=== PATIENT | male | born 1995 | race American Indian/Alaskan Native ===

== ENCOUNTER 2017-04-22 13:22 | Emergency (ER) | payer SELFPAY ==
[2017-04-22 13:31] VITALS: BP 144/101
[2017-04-22] MEDS ORDERED: MOTRIN PO ONE (17:55)
--- NOTE | 2017-04-22 17:57 | Emergency Department Report ---
ED ENT HPI - General Chief complaint: Sore Throat Stated complaint: SORE THROAT Time Seen by Provider: 04/22/17 17:40 Source: patient Mode of arrival: Ambulatory Limitations: No Limitations - History of Present Illness Initial comments: 21-year-old male presents with complaint of 3 weeks of intermittent sore throat. No trismus and no stridor no drooling noted on clinical exam. Patient states he sometimes gets bad odor from mouth. Denies any recent dental work. No blood or purulent discharge from throat. Patient is awake alert and oriented 3 fully lucid no drooling noted. Patient states she has a history of recurrent throat infections. Denies any abdominal pain significant fever or chills. Denies any difficulty swallowing solids or liquids. States that sore throat is worse in the mornings. MD complaint: sore throat Onset/Timin -: week(s) Severity: moderate Quality: aching Consistency: intermittent Worsens with: none Associated Symptoms: sore throat - Related Data Previous Rx's Medication Instructions Recorded Last Taken Type Dextromethorphan/Benzocaine 1 each PO Q4H PRN #1 lozenge 04/22/17 Unknown Rx [Cepacol Sorethroat-Cough Silvestre] Ibuprofen [Motrin] 800 mg PO Q8HR PRN #30 tablet 04/22/17 Unknown Rx Allergies Allergy/AdvReac Type Severity Reaction Status Date / Time codeine Allergy Rash Verified 04/22/17 13:28 ED Dental HPI - General Chief complaint: Sore Throat Stated complaint: SORE THROAT Time Seen by Provider: 04/22/17 17:40 Source: patient Mode of arrival: Ambulatory Limitations: No Limitations - Related Data Previous Rx's Medication Instructions Recorded Last Taken Type Dextromethorphan/Benzocaine 1 each PO Q4H PRN #1 lozenge 04/22/17 Unknown Rx [Cepacol Sorethroat-Cough Silvestre] Ibuprofen [Motrin] 800 mg PO Q8HR PRN #30 tablet 04/22/17 Unknown Rx Allergies Allergy/AdvReac Type Severity Reaction Status Date / Time codeine Allergy Rash Verified 04/22/17 13:28 ED Review of Systems ROS: Stated complaint: SORE THROAT Other details as noted in HPI Constitutional: denies: chills, fever Eyes: denies: eye pain, eye discharge, vision change ENT: throat pain. denies: ear pain Respiratory: denies: cough, shortness of breath, wheezing Cardiovascular: denies: chest pain, palpitations Endocrine: no symptoms reported Gastrointestinal: denies: abdominal pain, nausea, diarrhea Genitourinary: denies: urgency, dysuria Musculoskeletal: denies: back pain, joint swelling, arthralgia Skin: denies: rash, lesions Neurological: denies: headache, weakness, paresthesias Psychiatric: denies: anxiety, depression Hematological/Lymphatic: denies: easy bleeding, easy bruising ED Past Medical Hx - Past Medical History Previous Medical History?: No - Surgical History Past Surgical History?: No - Social History Smoking Status: Former Smoker Substance Use Type: Alcohol, Marijuana - Medications Home Medications: Home Medications Medication Instructions Recorded Confirmed Last Taken Type Dextromethorphan/Benzocaine 1 each PO Q4H PRN #1 lozenge 04/22/17 Unknown Rx [Cepacol Sorethroat-Cough Silvestre] Ibuprofen [Motrin] 800 mg PO Q8HR PRN #30 tablet 04/22/17 Unknown Rx ED Physical Exam - General Limitations: No Limitations General appearance: alert, in no apparent distress - Head Head exam: Present: atraumatic, normocephalic - Eye Eye exam: Present: normal appearance, PERRL, EOMI - ENT ENT exam: Present: mucous membranes moist - Expanded ENT Exam Expanded Throat exam: Positive: tonsillar exudate (small tonsillar exudates noted. No significant erythema or [employer], uvula is midline oropharynx is patent) - Neck Neck exam: Present: normal inspection - Respiratory Respiratory exam: Present: normal lung sounds bilaterally. Absent: respiratory distress - Cardiovascular Cardiovascular Exam: Present: regular rate, normal rhythm. Absent: systolic murmur, diastolic murmur, rubs, gallop - GI/Abdominal GI/Abdominal exam: Present: soft, normal bowel sounds - Rectal Rectal exam: Present: deferred - Extremities Exam Extremities exam: Present: normal inspection - Back Exam Back exam: Present: normal inspection - Neurological Exam Neurological exam: Present: alert, oriented X3 - Psychiatric Psychiatric exam: Present: normal affect, normal mood - Skin Skin exam: Present: warm, dry, intact, normal color. Absent: rash ED Course Vital Signs 04/22/17 13:28 Temperature 98.3 F Pulse Rate 76 Respiratory 18 Rate Blood Pressure 144/101 O2 Sat by Pulse 99 Oximetry ED Medical Decision Making - Medical Decision Making A/P: Tonsilliths 1-Motrin when necessary, throat lozenges when necessary, salt water rinses 2-strep swab negative 3-follow-up with ENT 4-patient is tolerating by mouth fluid and food without difficulty Critical care attestation.: If time is entered above; I have spent that time in minutes in the direct care of this critically ill patient, excluding procedure time. ED Disposition Clinical Impression: Tonsillith Disposition: TO HOME OR SELFCARE Is pt being admited?: No Does the pt Need Aspirin: No Condition: Stable Instructions: Tonsillitis (ED) Prescriptions: Dextromethorphan/Benzocaine [Cepacol Sorethroat-Cough Silvestre] 1 each PO Q4H PRN #1 lozenge PRN Reason: Sore Throat Ibuprofen [Motrin] 800 mg PO Q8HR PRN #30 tablet PRN Reason: Sore Throat Referrals: [facility] [Provider Group] - 3-5 Days [facility] [Provider Group] - 3-5 Days KARYNA DALAL MD [Staff Physician] - 3-5 Days Forms: Accompanied Note, Work/School Release Form(ED) Time of Disposition: 18:38
== END 2017-04-22 18:47 | disposition home or self-care (01) ==
LOC: ED 13:22
DX: J03.90 Acute tonsillitis, unspecified (principal); F12.10 Cannabis abuse, uncomplicated; Z88.5 Allergy status to narcotic agent; Z87.891 Personal history of nicotine dependence
CPT/HCPCS: 87116; 87430; 99282